=== PATIENT | male | born 1985 | race Two or more races ===

== ENCOUNTER 2024-10-27 15:40 | Emergency (ER) | payer OTHER ==
[~2024-10-27] VITALS: Ht 167.6 cm; Wt 102.1 kg
[2024-10-27] MEDS ORDERED: KETOROLAC TROMETHAMINE 60 MG VIAL IM ONE (17:00)
[2024-10-27] MEDS ORDERED: DEXAMETHASONE SODIUM PHOSPHATE 4 MG/ML VIAL IM ONE (17:00)
[2024-10-27] MEDS ORDERED: DEXAMETHASONE SODIUM PHOSPHATE 4 MG/ML VIAL ONE (17:02)
[2024-10-27] MEDS ORDERED: IBU600 MG PO (19:43)
== END 2024-10-27 20:16 | disposition home or self-care (01) ==
LOC: ER 15:43
DX: S63.501A Unspecified sprain of right wrist, initial encounter (principal); W19.XXXA Unspecified fall, initial encounter; Y93.89 Activity, other specified; Y92.89 Other specified places as the place of occurrence of the external cause; Y99.9 Unspecified external cause status; Z87.09 Personal history of other diseases of the respiratory system